=== PATIENT | female | born 2000 ===

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

== ENCOUNTER 2018-03-26 21:28 | Emergency (ER) | payer SELFPAY ==
[2018-03-26 21:55] VITALS: O2SAT 100
[2018-03-26] MEDS ORDERED: DiphenhydrAMINE 50 mg/ml Inj IVP STA (22:42)
--- NOTE | 2018-03-26 23:24 | ED PDOC ---
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 Branch History/Exam Limitations: language barrier Onset/Duration Of Symptoms: Days (two), Waxing/Waning Current Symptoms Are (Timing): Still Present Severity: Mild Quality: Dull Preceeding Symptoms: denies: Visual Disturbances, Known Migraine Symptoms Associated Symptoms: denies: Photophobia, Blurred Vision, Nausea, Vomiting, Extremity Weakness - Risk Factors SAH Risk Factors: Nest Degree Relative(s) W/SAH, Polycystic Kidney Disease, Marfan's Syndrome, Terry-Danlos Syndrome, Neurofibromatos, Type I, Sudden Onset Of Pain , Worst Headache Of Life Past Medical History Reviewed: Historical Data, Nursing Documentation, Vital Signs Vital Signs: Last Vital Signs Temp 98.4 F 03/26/18 21:51 Pulse 81 03/26/18 21:51 Resp 18 03/26/18 21:51 BP 120/75 03/26/18 21:51 Pulse Ox 100 03/26/18 21:51 - Family History Family History: States: Unknown Family Hx - Home Medications Home Medications: Ambulatory Orders Medication Instructions Recorded Meclizine [Antivert] 25 mg PO Q6 PRN #16 tab 07/19/16 Ciclopirox Olamine [Loprox] 90 gm TP BID #1 08/12/16 Triamcinolone 0.1% [Triamcinolone 0.1 % TP BID #1 tube 08/12/16 0.1% Cream] Guaifenesin 400 mg PO QID #20 tablet 11/07/17 Ibuprofen [Motrin Tab] 600 mg PO QID PRN #20 tab 11/07/17 SUMAtriptan [Imitrex] 1 tab PO PRN PRN #3 tab 03/26/18 - Allergies Allergies/Adverse Reactions: Allergies Allergy/AdvReac Type Severity Reaction Status Date / Time No Known Allergies Allergy Verified 09/27/16 20:58 Review of Systems ROS Statement: Except As Marked, All Systems Reviewed And Found Negative Neurological: Positive for: Headache Physical Exam - Reviewed Nursing Documentation Reviewed: Yes Vital Signs Reviewed: Yes - Physical Exam Appears: Positive for: Well, Non-toxic, Uncomfortable. Negative for: No Acute Distress Head Exam: Positive for: ATRAUMATIC, NORMAL INSPECTION Skin: Positive for: Normal Color, Warm Eye Exam: Positive for: Normal appearance, EOMI, PERRL. Negative for: Nystagmus , Periorbital swelling, Periorbital tenderness, Conjunctival injection ENT: Positive for: Normal ENT Inspection, Pharynx Is (nonerythematous and without exudate or edema; uvula is midline and nonedematous) Neck: Positive for: Normal, Painless ROM, Supple. Negative for: Decreased ROM Cardiovascular/Chest: Positive for: Regular Rate, Rhythm. Negative for: Edema, Gallop, Bradycardia, Tachycardia Respiratory: Positive for: Normal Breath Sounds. 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 Negative for: Motor/ Sensory Deficits - ECG O2 Sat by Pulse Oximetry: 100 Medical Decision Making Medical Decision Making: I: headache, migrane P: treate medically with benadryl, toradol and apap discharge with follow up to PMD for further evaluation and treatment of chronic condition Disposition - Clinical Impression Clinical Impression: Migraine, Headache - Patient ED Disposition Is Patient to be Admitted: No Doctor Will See Patient In The: Office Counseled Patient/Family Regarding: Diagnosis, Need For Followup - Disposition Referrals: Mitzi Willis MD [Resident] - Disposition: Routine/Home Disposition Time: 23:30 Condition: STABLE Additional Instructions: For Pain: tylenol 650 mg three times a day AND motrin 600 mg four times a day Prescriptions: SUMAtriptan [Imitrex] 1 tab PO PRN PRN #3 tab PRN Reason: Migraine Headache Instructions: Migraine Headache (DC), Migraine Headaches in Adults Forms: [employer] (Comoran) Print Language: MALDIVIAN
[2018-03-27 00:08] VITALS: BP 118/76; PULSE 78; RESP 16; TEMP 98
== END 2018-03-27 00:06 | disposition home or self-care (01) ==
LOC: H.ER 21:28
DX: G43.909 Migraine, unspecified, not intractable, without status migrainosus (principal)
CPT/HCPCS: 81025; 96374; 96375; 99282; J1200; J1885